=== PATIENT | male | born 1985 | race Caucasian/White ===

== ENCOUNTER → 2018-01-07 | Outpatient (REF) | payer BC ==
[~2018-01-07] MED LIST: AZIT-1 PO; DOXY50SY2 PO; METH4TAB66 PO; OMEP-125 PO; PER PO
[2018-01-07 11:15] LABS: PLATELET COUNT, AUTOMATED 327 K/uL (150-450)
== END ==
PROVIDERS: ATTEND Nurse Practitioner Family
DX: R07.89 Other chest pain (principal); R06.02 Shortness of breath
CPT/HCPCS: 82040; 82247; 82310; 82374; 82435; 82565; 82947; 84075; 84132; 84155; 84295; 84450; 84460; 84484; 84520; 85025